=== PATIENT | male | born 1950 | race Caucasian/White ===

== ENCOUNTER 2021-12-26 07:41 | Day surgery (SDC) | payer MEDICARE, MEDICAID ==
[~2021-12-26] VITALS: Ht 165.1 cm; Wt 105.0 kg
[2021-12-26] MEDS ORDERED: DiphenhydrAMINE HCL 50 MG/ML VIAL ONE (08:27)
[2021-12-26] MEDS ORDERED: DIAZEPAM 5 MG TABLET ONE (08:27)
[2021-12-26] MEDS ORDERED: DiphenhydrAMINE HCL 50 MG CAPSULE ONE (08:28)
[2021-12-26] MEDS ORDERED: SODIUM CHLORIDE 0.9% 1,000 ML IV SCH (08:30)
[2021-12-26] MEDS ORDERED: SODIUM CHLORIDE 0.9% 1,000 ML IV ONE (08:30)
[2021-12-26] MEDS ORDERED: DIAZEPAM 5 MG TABLET PO ONE (08:45)
[2021-12-26] MEDS ORDERED: DiphenhydrAMINE HCL 50 MG CAPSULE PO ONE (08:45)
[2021-12-26] MEDS ORDERED: ASPIRIN 81 MG CHEWABLE TABLET PO ONE (08:45)
[2021-12-26] MEDS ORDERED: CHL25 PO (08:49)
[2021-12-26] MEDS ORDERED: LINA145C PO (08:49)
[2021-12-26] MEDS ORDERED: LISI-894 PO (08:49)
[2021-12-26] MEDS ORDERED: NEBI5TAB2 PO (08:49)
[2021-12-26] MEDS ORDERED: FURO40 PO (08:49)
[2021-12-26] MEDS ORDERED: ATOR40TA28 PO (08:49)
[2021-12-26] MEDS ORDERED: CHOL-35 PO (08:49)
[2021-12-26] MEDS ORDERED: ASPI-1450 PO (08:49)
[2021-12-26] MEDS ORDERED: AMLO-257 PO (08:49)
[2021-12-26] MEDS ORDERED: HEPARIN SODIUM 1000 UNITS/NS 1,000 ML ONE (11:40)
[2021-12-26] MEDS ORDERED: IOHEXOL 300 MG/ML 150 ML VIAL ONE (11:40)
[2021-12-26] MEDS ORDERED: SODIUM BICARBONATE 50 MEQ/50 ML VIAL ONE (11:40)
[2021-12-26] MEDS ORDERED: IOHEXOL 300 MG/ML 50 ML VIAL ONE (11:40)
[2021-12-26] MEDS ORDERED: IOHEXOL 300 MG/ML 100 ML VIAL ONE (11:40)
[2021-12-26] MEDS ORDERED: LIDOCAINE/PF 1% 30 ML VIAL ONE (11:40)
[2021-12-26 11:48] VITALS: BP 144/58
[2021-12-26] MEDS ORDERED: FentaNYL CITRATE PF 100 MCG/2 ML VIAL ONE (12:13)
[2021-12-26] MEDS ORDERED: MIDAZOLAM HCL 2 MG/2 ML VIAL ONE (12:14)
[2021-12-26] MEDS ORDERED: HEPARIN SODIUM 1000 UNITS/NS 1,000 ML IARTER ONE (12:30)
[2021-12-26] MEDS ORDERED: IOHEXOL 300 MG/ML 150 ML VIAL IARTER ONE (12:30)
[2021-12-26] MEDS ORDERED: LIDOCAINE 1% 30 ML/SOD BICARB 8.4% 4 ML SQ ONE (12:30)
[2021-12-26] MEDS ORDERED: FentaNYL CITRATE PF 100 MCG/2 ML VIAL IVP ONE ×2 (12:30→13:30)
[2021-12-26] MEDS ORDERED: MIDAZOLAM HCL 2 MG/2 ML VIAL IVP ONE ×2 (12:30→13:30)
[2021-12-26] MEDS ORDERED: HEPARIN SODIUM,PORCINE 1,000 UNITS/ML 10 ML VIAL ONE (12:45)
[2021-12-26] MEDS ORDERED: TICAGRELOR 90 MG TABLET ONE ×3 (13:08→16:41)
[2021-12-26] MEDS ORDERED: TICAGRELOR 90 MG TABLET PO ONE ×2 (13:30→17:00)
[2021-12-26 13:37] VITALS: BP 154/75
== END 2021-12-26 17:30 | disposition home or self-care (01) ==
LOC: CATHLAB 07:41
PROVIDERS: ATTEND Internal Medicine Interventional Cardiology
DX: R07.89 Other chest pain (principal); T82.855A Stenosis of coronary artery stent, initial encounter; I25.10 Atherosclerotic heart disease of native coronary artery without angina pectoris; I10 Essential (primary) hypertension; E78.5 Hyperlipidemia, unspecified; Z79.899 Other long term (current) drug therapy; Z95.5 Presence of coronary angioplasty implant and graft; Z88.1 Allergy status to other antibiotic agents; Y83.8 Other surgical procedures as the cause of abnormal reaction of the patient, or of later complication, without mention of misadventure at the time of the procedure; Y92.89 Other specified places as the place of occurrence of the external cause
CPT/HCPCS: 93005; 93458; 99152; 99153; C1760; C1874; C1887; C9600; J1644 ×2; J2250; J3010; J3490 ×2; Q9967 ×3; 92920; 92928; J1200

== ENCOUNTER 2022-03-18 06:39 | Day surgery (SDC) | payer MEDICARE, MEDICAID ==
[~2022-03-18] VITALS: Ht 165.1 cm; Wt 105.0 kg
[~2022-03-18 06:39] MED LIST: ASPI-1450 PO; CHL25 PO; CHOL25TA4 PO; EVOL140P3 SQ; FURO40 PO; LISI-894 PO; METO25 PO; SODIUM CHLORIDE 0.9% 1,000 ML ONE; TICA90TA PO
[2022-03-18] MEDS ORDERED: SODIUM CHLORIDE 0.9% 1,000 ML IV ONE (07:00)
[2022-03-18] MEDS ORDERED: DIAZEPAM 5 MG TABLET ONE (07:37)
[2022-03-18] MEDS ORDERED: DiphenhydrAMINE HCL 50 MG CAPSULE ONE (07:38)
[2022-03-18 07:46] LABS: GLUCOMETER DEV NAME(LOC) SDS.; GLUCOSE,POINT OF CARE 95 MG/DL (70-110)
[2022-03-18] MEDS ORDERED: ASPIRIN 81 MG CHEWABLE TABLET PO ONE (09:00)
[2022-03-18] MEDS ORDERED: DIAZEPAM 5 MG TABLET PO ONE (09:00)
[2022-03-18] MEDS ORDERED: DiphenhydrAMINE HCL 50 MG CAPSULE PO ONE (09:00)
[2022-03-18] MEDS ORDERED: IOHEXOL 300 MG/ML 150 ML VIAL ONE (09:57)
[2022-03-18] MEDS ORDERED: LIDOCAINE/PF 1% 30 ML VIAL ONE (09:57)
[2022-03-18] MEDS ORDERED: IOHEXOL 300 MG/ML 100 ML VIAL ONE (09:57)
[2022-03-18] MEDS ORDERED: HEPARIN SODIUM 1000 UNITS/NS 500 ML ONE (09:58)
[2022-03-18] MEDS ORDERED: SODIUM BICARBONATE 50 MEQ/50 ML VIAL ONE (09:58)
[2022-03-18] MEDS ORDERED: FentaNYL CITRATE PF 100 MCG/2 ML VIAL ONE (10:06)
[2022-03-18] MEDS ORDERED: MIDAZOLAM HCL 2 MG/2 ML VIAL ONE (10:06)
[2022-03-18] MEDS ORDERED: IOHEXOL 300 MG/ML 50 ML VIAL ONE (10:09)
[2022-03-18] MEDS ORDERED: HEPARIN SODIUM 1000 UNITS/NS 1,000 ML IARTER ONE (10:15)
[2022-03-18] MEDS ORDERED: IOHEXOL 300 MG/ML 150 ML VIAL IARTER ONE (10:15)
[2022-03-18] MEDS ORDERED: SODIUM CHLORIDE 0.9% 500 ML IV ONE (10:15)
[2022-03-18] MEDS ORDERED: LIDOCAINE 1% 30 ML/SOD BICARB 8.4% 4 ML SQ ONE (10:15)
[2022-03-18 10:19] VITALS: BP 141/67
[2022-03-18] MEDS ORDERED: FentaNYL CITRATE PF 100 MCG/2 ML VIAL IVP ONE ×2 (10:30→11:15)
[2022-03-18] MEDS ORDERED: MIDAZOLAM HCL 2 MG/2 ML VIAL IVP ONE (10:30)
[2022-03-18] MEDS ORDERED: RANO500T6 PO (10:52)
[2022-03-18] MEDS ORDERED: CLOT15CR23 TP (10:52)
[2022-03-18] MEDS ORDERED: AMLO5TAB66 PO (10:52)
[2022-03-18] MEDS ORDERED: HEPARIN SODIUM,PORCINE 5,000 UNITS/ML VIAL IVP ONE (11:00)
[2022-03-18] MEDS ORDERED: IOHEXOL 300 MG/ML 50 ML VIAL IARTER ONE (11:00)
[2022-03-18] MEDS ORDERED: PROTAMINE SULFATE 10 MG/ML 5 ML VIAL IVP ONE (11:15)
[2022-03-18 11:29] VITALS: BP 164/75
== END 2022-03-18 15:05 | disposition home or self-care (01) ==
LOC: CATHLAB 06:39
PROVIDERS: ATTEND Internal Medicine Interventional Cardiology
DX: R94.39 Abnormal result of other cardiovascular function study (principal); I25.10 Atherosclerotic heart disease of native coronary artery without angina pectoris; E66.9 Obesity, unspecified; I10 Essential (primary) hypertension; E78.5 Hyperlipidemia, unspecified; I73.9 Peripheral vascular disease, unspecified; Z79.899 Other long term (current) drug therapy; Z98.890 Other specified postprocedural states; Z79.82 Long term (current) use of aspirin; Z68.37 Body mass index [BMI] 37.0-37.9, adult
CPT/HCPCS: 82962; 92920; 93005; 93458; 99152; 99153; C1760; C1887; J1644; J2250; J2720; J3010; J3490 ×2; J7030; Q9967 ×2